=== PATIENT | male | born 1935 | race Caucasian/White ===

== ENCOUNTER 2017-05-15 21:16 | Inpatient (IN) | payer OTHER, BC ==
[~2017-05-15] VITALS: Ht 172.7 cm; Wt 67.0 kg
[~2017-05-15 21:16] MED LIST: BP MED; LEVOTHYROXINE100 MCG PO; QUINAPRIL HCL40 MG PO; TERAZOSIN HCL2 MG PO; WELLBUTRIN XL300 MG PO
[2017-05-15 22:37] LABS: CHLORIDE 97 mEq/L (99-109); POTASSIUM 4.3 mEq/L (3.7-5.4); SODIUM 127 mEq/L (136-147)
[2017-05-15 22:39] LABS: HEMATOCRIT 16.8 % (38.0-50.0); MCH 26.6 PG (29.0-34.0); MCHC 31.5 G/DL (30.0-36.0); MCV 84.4 FL (86-99); MEAN PLAT.VOLUME 8.5 uM^3 (9.0-12.4); PLATELET COUNT 367 K/uL (156-360); RBC DIS.WIDTH-CV 15.2 % (11.8-14.6); RBC DIS.WIDTH-SD 46.3 % (39-53); RED BLOOD COUNT 1.99 M/uL (4.00-5.50); WHITE BLOOD COUNT 5.4 K/uL (4.1-10.2)
[2017-05-15 22:39] LABS: GLUCOSE 81 mg/dL (70-99)
[2017-05-15 22:40] LABS: ANION GAP 7 MEQ/L (2-14)
[2017-05-15 22:43] LABS: GFR ESTIMATE (CALCULATED) > 59 mL/min/
[2017-05-15 22:44] LABS: UREA NITROGEN (BUN) 11 mg/dL (9-23)
[2017-05-15 23:07] LABS: INTER. NORMALIZED RATIO 1.1; PROTHROMBIN TIME 12.6 SEC (10.2-12.9)
[2017-05-15 23:10] LABS: PTT 28.8 SEC (25-37)
[2017-05-15 23:14] LABS: TOTAL BILIRUBIN 0.3 mg/dL (0.0-1.0)
[2017-05-15 23:15] LABS: ALKALINE PHOSPHATASE 91 IU/L (3-129)
[2017-05-15 23:18] LABS: DIRECT BILIRUBIN 0.2 mg/dL (0.0-0.3)
[2017-05-15 23:19] LABS: LIPASE 34 U/L (1.0-51.0)
[2017-05-15 23:23] LABS: TROP-I INTERPRETATION NEGATIVE; TROPONIN-I < 0.01 ng/mL (0.0-0.30)
[2017-05-16] VITALS (10 sets, daily range): BP systolic 148–195; BP diastolic 71–92
[2017-05-16] MEDS ORDERED: KENALOG,ARISTOC80 G1 TP (00:46)
[2017-05-16] MEDS ORDERED: FUROSEMIDE20 MG PO (00:46)
[2017-05-16] MEDS ORDERED: DIPROSONE 0.05%15 GM TP (00:46)
[2017-05-16] MEDS ORDERED: KLOR-CON M2020 MEQ PO (00:47)
[2017-05-16] MEDS ORDERED: SLOW RELEASE I142 M1 PO (00:47)
[2017-05-16] MEDS ORDERED: VITAMIN B-121000 MC3 PO (00:47)
[2017-05-16 05:40] LABS: TROP-I INTERPRETATION NEGATIVE; TROPONIN-I < 0.01 ng/mL (0.0-0.30)
[2017-05-16 10:47] LABS: HEMATOCRIT 27.2 % (38.0-50.0); MCH 27.8 PG (29.0-34.0); MCHC 33.1 G/DL (30.0-36.0); MEAN PLAT.VOLUME 8.3 uM^3 (9.0-12.4); PLATELET COUNT 396 K/uL (156-360); RBC DIS.WIDTH-CV 14.2 % (11.8-14.6); RBC DIS.WIDTH-SD 43.6 % (39-53); RED BLOOD COUNT 3.24 M/uL (4.00-5.50); WHITE BLOOD COUNT 6.1 K/uL (4.1-10.2)
[2017-05-16 10:52] LABS: TROP-I INTERPRETATION NEGATIVE; TROPONIN-I 0.01 ng/mL (0.0-0.30)
[2017-05-16 11:01] LABS: ANION GAP 5 MEQ/L (2-14); CHLORIDE 93 MEQ/L (99-109); GFR ESTIMATE (CALCULATED) > 59 mL/min/; GLUCOSE 84 mg/dL (70-99); POTASSIUM 4.2 MEQ/L (3.7-5.4); SAMPLE HEMOLYSIS CHECK 0; SAMPLE ICTERIC CHECK 0; SAMPLE LIPEMIA CHECK 0; SODIUM 127 MEQ/L (136-147); UREA NITROGEN (BUN) 10 mg/dL (9-23)
[2017-05-16 20:14] LABS: HEMATOCRIT 26.5 % (38.0-50.0); MCV 83.6 FL (86-99)
[2017-05-17] VITALS (8 sets, daily range): BP systolic 163–206; BP diastolic 72–89
[2017-05-17 06:56] LABS: ALKALINE PHOSPHATASE 77 IU/L (3-129); ANION GAP 8 MEQ/L (2-14); CHLORIDE 95 MEQ/L (99-109); GFR ESTIMATE (CALCULATED) > 59 mL/min/; GLUCOSE 61 mg/dL (70-99); POTASSIUM 3.8 MEQ/L (3.7-5.4); SAMPLE HEMOLYSIS CHECK 0; SAMPLE ICTERIC CHECK 0; SAMPLE LIPEMIA CHECK 0; SODIUM 132 MEQ/L (136-147); TOTAL BILIRUBIN 0.6 MG/DL (0.0-1.0); UREA NITROGEN (BUN) 9 mg/dL (9-23)
[2017-05-17 08:32] LABS: HEMATOCRIT 25.2 % (38.0-50.0); MCV 84.3 FL (86-99)
[2017-05-17 21:28] LABS: HEMATOCRIT 27.3 % (38.0-50.0); MCV 85.6 FL (86-99)
[2017-05-18 03:16] VITALS: BP 177/75
[2017-05-18 07:43] VITALS: BP 191/94
[2017-05-18 08:38] LABS: HEMATOCRIT 29.6 % (38.0-50.0)
[2017-05-18 11:37] VITALS: BP 180/85
[2017-05-18 15:31] VITALS: BP 179/90
[2017-05-18 19:59] VITALS: BP 175/80
[2017-05-18 20:01] LABS: MCV 85.8 FL (86-99)
[2017-05-18 23:23] VITALS: BP 189/92
[2017-05-19 03:15] VITALS: BP 185/86
[2017-05-19 07:02] LABS: MCH 28.1 PG (29.0-34.0); MCHC 32.5 G/DL (30.0-36.0); MCV 86.4 FL (86-99); MEAN PLAT.VOLUME 8.6 uM^3 (9.0-12.4); NRBC (%) 0.2 /100 WBC (0-0); PLATELET COUNT 352 K/uL (156-360); RBC DIS.WIDTH-SD 46.3 % (39-53); RED BLOOD COUNT 3.24 M/uL (4.00-5.50); WHITE BLOOD COUNT 8.8 K/uL (4.1-10.2)
[2017-05-19 07:33] LABS: ANION GAP 5 MEQ/L (2-14); CHLORIDE 95 MEQ/L (99-109); GFR ESTIMATE (CALCULATED) > 59 mL/min/; POTASSIUM 3.7 MEQ/L (3.7-5.4); SAMPLE HEMOLYSIS CHECK 0; SAMPLE ICTERIC CHECK 0; SAMPLE LIPEMIA CHECK 0; SODIUM 131 MEQ/L (136-147); UREA NITROGEN (BUN) 7 mg/dL (9-23)
[2017-05-19 07:41] LABS: GLUCOSE 80 mg/dL (70-99)
[2017-05-19 07:54] VITALS: BP 175/83
[2017-05-19 16:43] VITALS: BP 182/73
[2017-05-19 19:58] LABS: HEMATOCRIT 28.5 % (38.0-50.0); MCV 86.9 FL (86-99)
[2017-05-19 23:31] VITALS: BP 143/70
[2017-05-20 03:51] VITALS: BP 142/70
[2017-05-20 06:33] LABS: HEMATOCRIT 28.1 % (38.0-50.0); MCH 28.2 PG (29.0-34.0); MCHC 32.4 G/DL (30.0-36.0); MEAN PLAT.VOLUME 8.6 uM^3 (9.0-12.4); PLATELET COUNT 346 K/uL (156-360); RBC DIS.WIDTH-CV 15.7 % (11.8-14.6); RBC DIS.WIDTH-SD 47.2 % (39-53); RED BLOOD COUNT 3.23 M/uL (4.00-5.50); WHITE BLOOD COUNT 7.7 K/uL (4.1-10.2)
[2017-05-20 06:59] LABS: ANION GAP 6 MEQ/L (2-14); CHLORIDE 96 MEQ/L (99-109); GFR ESTIMATE (CALCULATED) > 59 mL/min/; GLUCOSE 82 mg/dL (70-99); POTASSIUM 3.5 MEQ/L (3.7-5.4); SAMPLE HEMOLYSIS CHECK 0; SAMPLE ICTERIC CHECK 0; SAMPLE LIPEMIA CHECK 0; SODIUM 133 MEQ/L (136-147); UREA NITROGEN (BUN) 8 mg/dL (9-23)
[2017-05-20 08:00] VITALS: BP 186/68
[2017-05-20 11:45] VITALS: BP 166/64
[2017-05-20 14:58] VITALS: BP 168/69
[2017-05-20 19:52] VITALS: BP 162/79
[2017-05-21] VITALS (7 sets, daily range): BP systolic 139–194; BP diastolic 64–100
[2017-05-21 06:32] LABS: HEMATOCRIT 28.9 % (38.0-50.0); MCH 28.4 PG (29.0-34.0); MCHC 32.2 G/DL (30.0-36.0); MCV 88.1 FL (86-99); MEAN PLAT.VOLUME 8.9 uM^3 (9.0-12.4); PLATELET COUNT 337 K/uL (156-360); RBC DIS.WIDTH-CV 16.4 % (11.8-14.6); RBC DIS.WIDTH-SD 49.1 % (39-53); RED BLOOD COUNT 3.28 M/uL (4.00-5.50); WHITE BLOOD COUNT 7.4 K/uL (4.1-10.2)
[2017-05-21 06:46] LABS: ANION GAP 7 MEQ/L (2-14); CHLORIDE 98 MEQ/L (99-109); GFR ESTIMATE (CALCULATED) > 59 mL/min/; GLUCOSE 80 mg/dL (70-99); POTASSIUM 3.6 MEQ/L (3.7-5.4); SAMPLE HEMOLYSIS CHECK 0; SAMPLE ICTERIC CHECK 0; SAMPLE LIPEMIA CHECK 0; SODIUM 136 MEQ/L (136-147); UREA NITROGEN (BUN) 12 mg/dL (9-23)
[2017-05-21 17:32] LABS: ADD MIUA? NO; BILIRUBIN NEGATIVE; BLOOD NEGATIVE; COLOR YELLOW ((YELLOW)); GLUCOSE (STRIP) NEGATIVE; KETONES NEGATIVE; LEUKOCYTES NEGATIVE; NITRITE NEGATIVE; PROTEIN (STRIP) NEGATIVE; SPECIFIC GRAVITY 1.013 (1.000-1.030)
[2017-05-22] VITALS (13 sets, daily range): BP systolic 0–192; BP diastolic 0–111
[2017-05-22 04:32] LABS: POINT-OF-CARE METER ID UU13113717
[2017-05-22 04:53] LABS: HEMATOCRIT 34.1 % (38.0-50.0); MCH 29.2 PG (29.0-34.0); MCHC 33.1 G/DL (30.0-36.0); MCV 88.1 FL (86-99); PLATELET COUNT 411 K/uL (156-360); RBC DIS.WIDTH-SD 50.3 % (39-53); RED BLOOD COUNT 3.87 M/uL (4.00-5.50); WHITE BLOOD COUNT 10.2 K/uL (4.1-10.2)
[2017-05-22 05:01] LABS: CHLORIDE 98 mEq/L (99-109); MAGNESIUM 1.5 mg/dL (1.3-2.7); POTASSIUM 3.8 mEq/L (3.7-5.4); SODIUM 138 mEq/L (136-147)
[2017-05-22 05:02] LABS: GLUCOSE 94 mg/dL (70-99)
[2017-05-22 05:07] LABS: GFR ESTIMATE (CALCULATED) > 59 mL/min/; UREA NITROGEN (BUN) 14 mg/dL (9-23)
[2017-05-22 05:12] LABS: ANION GAP 12 MEQ/L (2-14)
[2017-05-22 05:14] LABS: ALKALINE PHOSPHATASE 74 IU/L (3-129); TOTAL BILIRUBIN 0.6 mg/dL (0.0-1.0)
[2017-05-22 05:16] LABS: DIRECT BILIRUBIN 0.3 mg/dL (0.0-0.3)
[2017-05-22 06:14] LABS: METH RESISTANT S AUREUS PCR NEGATIVE (NEGATIVE); PROBE CHECK PASS; SPECIMEN PROCESSING CONTROL PASS
[2017-05-22 08:53] LABS: BASOPHIL COUNT 0.1 K/uL (0-0.1); EOSINOPHIL (%) 0.2 % (0-5); HEMATOCRIT 32.2 % (38.0-50.0); IMMATURE GRANULOCYTE (%) 0.5 % (0.0-0.7); INSTRUMENT ABS NEUTROPHIL CT 6.7 K/uL; LYMPHOCYTE COUNT 0.9 K/uL (1.0-2.8); MCH 28.9 PG (29.0-34.0); MCHC 32.3 G/DL (30.0-36.0); MCV 89.4 FL (86-99); MEAN PLAT.VOLUME 8.8 uM^3 (9.0-12.4); MONOCYTE (%) 9.8 % (3-12); MONOCYTE COUNT 0.8 K/uL (0-0.8); NEUTROPHIL (%) 78.3 % (45-76); NEUTROPHIL COUNT 6.7 K/uL (1.8-6.4); PLATELET COUNT 358 K/uL (156-360); RBC DIS.WIDTH-CV 17.1 % (11.8-14.6); RBC DIS.WIDTH-SD 52.3 % (39-53); WHITE BLOOD COUNT 8.5 K/uL (4.1-10.2)
[2017-05-23] VITALS (10 sets, daily range): BP systolic 114–177; BP diastolic 61–109
[2017-05-23 05:44] LABS: HEMATOCRIT 32.6 % (38.0-50.0); MCH 28.3 PG (29.0-34.0); MCHC 31.9 G/DL (30.0-36.0); MCV 88.8 FL (86-99); MEAN PLAT.VOLUME 8.6 uM^3 (9.0-12.4); PLATELET COUNT 387 K/uL (156-360); RBC DIS.WIDTH-CV 17.6 % (11.8-14.6); RBC DIS.WIDTH-SD 54.4 % (39-53); RED BLOOD COUNT 3.67 M/uL (4.00-5.50); WHITE BLOOD COUNT 8.1 K/uL (4.1-10.2)
[2017-05-23 06:17] LABS: ANION GAP 8 MEQ/L (2-14); CHLORIDE 98 MEQ/L (99-109); GFR ESTIMATE (CALCULATED) > 59 mL/min/; GLUCOSE 68 mg/dL (70-99); POTASSIUM 3.5 MEQ/L (3.7-5.4); SAMPLE HEMOLYSIS CHECK 0; SAMPLE ICTERIC CHECK 0; SAMPLE LIPEMIA CHECK 0; SODIUM 138 MEQ/L (136-147); UREA NITROGEN (BUN) 16 mg/dL (9-23)
[2017-05-23 14:37] LABS: URIC ACID 7.2 mg/dL (3.1-9.2)
[2017-05-24 04:33] VITALS: BP 151/67
[2017-05-24 08:00] VITALS: BP 164/68
[2017-05-24] MEDS ORDERED: MUPIROCIN15 GM TP (11:10)
[2017-05-24] MEDS ORDERED: KEFLEX500 MG PO (11:10)
[2017-05-24] MEDS ORDERED: COLCHICINE0.6 M1 PO (11:10)
[2017-05-24] MEDS ORDERED: TRAMADOL HCL50 MG PO (11:10)
[2017-05-24] MEDS ORDERED: APRESOLINE50 MG PO (11:58)
[2017-05-24 12:00] VITALS: BP 125/64
== END 2017-05-24 16:46 | disposition home health service (06) | DRG 378 ==
LOC: EME 21:16 → EDBD 21:16 → EME 21:16 → 4WEST 05-16 01:04 → 5SOUTH 05-16 01:04 → EDOF 05-16 01:04 → ENRESERV 05-16 01:06 → 5SOUTH 05-16 03:48 → ENRESERV 05-22 04:36 → 4WEST 05-22 04:41 → ENRESERV 05-23 13:31 → 5SOUTH 05-23 16:01
PROVIDERS: Hospitalist; Internal Medicine; Nurse Practitioner Adult Health
PROC: 30233N1 Transfusion of Nonautologous Red Blood Cells into Peripheral Vein, Percutaneous Approach (ICD-10-PCS; 2017-05-16)
PROC: 0DJ08ZZ Inspection of Upper Intestinal Tract, Via Natural or Artificial Opening Endoscopic (ICD-10-PCS; principal; 2017-05-19)
DX: K92.1 Melena (principal); D62 Acute posthemorrhagic anemia; D50.9 Iron deficiency anemia, unspecified; E06.3 Autoimmune thyroiditis; F10.231 Alcohol dependence with withdrawal delirium; I16.0 Hypertensive urgency; I10 Essential (primary) hypertension; E87.1 Hypo-osmolality and hyponatremia; M10.9 Gout, unspecified; I87.2 Venous insufficiency (chronic) (peripheral); H26.9 Unspecified cataract; M20.42 Other hammer toe(s) (acquired), left foot; N40.0 Benign prostatic hyperplasia without lower urinary tract symptoms; K40.90 Unilateral inguinal hernia, without obstruction or gangrene, not specified as recurrent; K42.9 Umbilical hernia without obstruction or gangrene; M54.9 Dorsalgia, unspecified; R14.0 Abdominal distension (gaseous); R19.7 Diarrhea, unspecified; R45.1 Restlessness and agitation; R60.0 Localized edema; F32.9 Major depressive disorder, single episode, unspecified; Z87.891 Personal history of nicotine dependence
CPT/HCPCS: 36415; 70450; 71010; 80048; 80048 91; 80053; 80069; 80076; 81003; 82140; 82272; 82728; 82948; 83540; 83605; 83690; 83735; 83880; 84439; 84443; 84450; 84460; 84466; 84484; 84550; 85014; 85018; 85025; 85027; 85610; 85730; 86850; 86900; 86901; 86920; 87040; 87086; 87641; 92523 GN; 92610 GN; 93005; 93306; 93970; 94799; 97530 GO; 99281; 99285; C9113; J0360; J0696; J1630; J1756; J1940; J2060; J3475; J7030; J7050; P9016; S0028

== ENCOUNTER 2017-06-23 11:12 | Inpatient (IN) | payer OTHER, BC ==
[~2017-06-23] VITALS: Ht 172.7 cm; Wt 80.1 kg
[~2017-06-23 11:12] MED LIST changes: +APRESOLINE50 MG PO; +COLCHICINE0.6 M1 PO; +DIPROSONE 0.05%15 GM TP; +FUROSEMIDE20 MG PO; +KEFLEX500 MG PO; +KENALOG,ARISTOC80 G1 TP; +KLOR-CON M2020 MEQ PO; +MUPIROCIN15 GM TP; +SLOW RELEASE I142 M1 PO; +TRAMADOL HCL50 MG PO; +VITAMIN B-121000 MC3 PO
[2017-06-23 13:14] LABS: MCH 29.3 PG (29.0-34.0); MCHC 32.9 G/DL (30.0-36.0); MCV 88.9 FL (86-99); MEAN PLAT.VOLUME 8.1 uM^3 (9.0-12.4); PLATELET COUNT 376 K/uL (156-360); RBC DIS.WIDTH-CV 19.5 % (11.8-14.6); RBC DIS.WIDTH-SD 63.2 % (39-53); WHITE BLOOD COUNT 15.8 K/uL (4.1-10.2)
[2017-06-23 13:22] LABS: CHLORIDE 98 mEq/L (99-109); POTASSIUM 3.8 mEq/L (3.7-5.4); SODIUM 133 mEq/L (136-147)
[2017-06-23 13:24] LABS: GLUCOSE 81 mg/dL (70-99)
[2017-06-23 13:24] LABS: INTER. NORMALIZED RATIO 1.3; PROTHROMBIN TIME 14.7 SEC (10.2-12.9); PTT 29.9 SEC (25-37)
[2017-06-23 13:25] LABS: ANION GAP 7 MEQ/L (2-14)
[2017-06-23 13:26] LABS: TOTAL BILIRUBIN 0.3 mg/dL (0.0-1.0)
[2017-06-23 13:28] LABS: ALKALINE PHOSPHATASE 75 IU/L (3-129); GFR ESTIMATE (CALCULATED) > 59 mL/min/ (58.99-99999)
[2017-06-23 13:29] LABS: UREA NITROGEN (BUN) 15 mg/dL (9-23)
[2017-06-23 13:34] LABS: TROP-I INTERPRETATION NEGATIVE; TROPONIN-I < 0.01 ng/mL (0.0-0.30)
[2017-06-23] MEDS ORDERED: VITAMIN B-12 51 EACH SL (15:08)
[2017-06-23] MEDS ORDERED: CENTRUM FLAVOR1 EAC1 PO (15:09)
[2017-06-23] MEDS ORDERED: ANTI-DIARRHEA2 MG PO (15:09)
[2017-06-23 15:56] VITALS: BP 173/77
[2017-06-23 22:38] VITALS: BP 159/72
[2017-06-23 22:54] LABS: HEMATOCRIT 21.9 % (38.0-50.0); MCV 89.8 FL (86-99)
[2017-06-24] VITALS (10 sets, daily range): BP systolic 146–189; BP diastolic 76–106
[2017-06-24 05:37] LABS: MCV 89.9 FL (86-99)
[2017-06-24 12:18] LABS: HEMATOCRIT 24.9 % (38.0-50.0); MCV 89.6 FL (86-99)
[2017-06-24 20:55] LABS: HEMATOCRIT 25.3 % (38.0-50.0); MCV 89.7 FL (86-99)
[2017-06-25 03:49] VITALS: BP 174/86
[2017-06-25 06:39] LABS: HEMATOCRIT 26.3 % (38.0-50.0); MCH 28.3 PG (29.0-34.0); MCHC 31.6 G/DL (30.0-36.0); MCV 89.8 FL (86-99); MEAN PLAT.VOLUME 8.3 uM^3 (9.0-12.4); PLATELET COUNT 376 K/uL (156-360); RBC DIS.WIDTH-CV 19.1 % (11.8-14.6); RBC DIS.WIDTH-SD 63.4 % (39-53); RED BLOOD COUNT 2.93 M/uL (4.00-5.50); WHITE BLOOD COUNT 6.3 K/uL (4.1-10.2)
[2017-06-25 06:57] LABS: ANION GAP 7 MEQ/L (2-14); CHLORIDE 101 MEQ/L (99-109); GFR ESTIMATE (CALCULATED) > 59 mL/min/ (58.99-99999); GLUCOSE 56 mg/dL (70-99); SAMPLE HEMOLYSIS CHECK 0; SAMPLE ICTERIC CHECK 0; SAMPLE LIPEMIA CHECK 0; SODIUM 137 MEQ/L (136-147); UREA NITROGEN (BUN) 8 mg/dL (9-23)
[2017-06-25 07:05] VITALS: BP 197/97
[2017-06-25 09:00] VITALS: BP 152/76
[2017-06-25 09:04] LABS: HEMATOCRIT 28.6 % (38.0-50.0); MCV 88.8 FL (86-99)
[2017-06-25 15:05] VITALS: BP 151/70
[2017-06-25] MEDS ORDERED: CHOLESTYRAMINE P4 GM PO (16:31)
[2017-06-25 19:07] VITALS: BP 186/87
[2017-06-26 00:22] VITALS: BP 158/67
[2017-06-26 03:43] VITALS: BP 186/91
[2017-06-26 07:12] LABS: ANION GAP 5 MEQ/L (2-14); CHLORIDE 101 MEQ/L (99-109); GFR ESTIMATE (CALCULATED) > 59 mL/min/ (58.99-99999); GLUCOSE 78 mg/dL (70-99); POTASSIUM 4.1 MEQ/L (3.7-5.4); SAMPLE HEMOLYSIS CHECK 0; SAMPLE ICTERIC CHECK 0; SAMPLE LIPEMIA CHECK 0; SODIUM 137 MEQ/L (136-147); UREA NITROGEN (BUN) 7 mg/dL (9-23)
[2017-06-26 07:38] VITALS: BP 191/74
[2017-06-26] MEDS ORDERED: APRESOLINE50 MG PO (10:39)
[2017-06-26] MEDS ORDERED: AMOX TR-K CLV1 EAC4 PO (10:42)
[2017-06-26 11:05] VITALS: BP 158/70
== END 2017-06-26 13:46 | disposition home health service (06) | DRG 394 ==
LOC: EME 11:12 → 5SOUTH 13:41 → EDOF 13:41 → ENRESERV 13:47 → 5SOUTH 14:16 → ENRESERV 14:17 → EDOF 14:20 → 5SOUTH 15:30
PROVIDERS: Emergency Medicine; Hospitalist; Nurse Practitioner Adult Health; Physician Assistant Medical
PROC: 0D9Q3ZZ Drainage of Anus, Percutaneous Approach (ICD-10-PCS; principal; 2017-06-23)
PROC: 30233N1 Transfusion of Nonautologous Red Blood Cells into Peripheral Vein, Percutaneous Approach (ICD-10-PCS; 2017-06-24)
DX: K61.2 Anorectal abscess (principal); K92.2 Gastrointestinal hemorrhage, unspecified; L03.317 Cellulitis of buttock; D50.0 Iron deficiency anemia secondary to blood loss (chronic); E88.09 Other disorders of plasma-protein metabolism, not elsewhere classified; K64.5 Perianal venous thrombosis; E06.3 Autoimmune thyroiditis; F41.9 Anxiety disorder, unspecified; I10 Essential (primary) hypertension; N40.0 Benign prostatic hyperplasia without lower urinary tract symptoms; R60.0 Localized edema; F10.20 Alcohol dependence, uncomplicated; Z87.891 Personal history of nicotine dependence
CPT/HCPCS: 74177; 76705; 80048; 80053; 83605; 84484; 85014; 85018; 85027; 85610; 85730; 86850; 86900; 86901; 86920; 87040; 87070; 87075; 87076; 87185; 87205; 93005; 99281; 99285; J0295; J0330; J0360; J1170; J1756; J2543; J2704; J3010; J3411; J7030; J7050; P9016; P9045; P9047; S0020

== ENCOUNTER 2017-07-25 15:21 | Emergency (ER) | payer OTHER, BC ==
[~2017-07-25] VITALS: Ht 165.1 cm; Wt 74.3 kg
[~2017-07-25 15:21] MED LIST changes: +AMOX TR-K CLV1 EAC4 PO; +ANTI-DIARRHEA2 MG PO; +CENTRUM FLAVOR1 EAC1 PO; +CHOLESTYRAMINE P4 GM PO; +VITAMIN B-12 51 EACH SL; +VITAMIN B-1250 MC3 PO
[2017-07-25 15:34] VITALS: BP 173/107
[2017-07-25 16:03] LABS: HEMATOCRIT 26.1 % (38.0-50.0); HEMOGLOBIN 8.5 G/DL (12.5-16.6); MCH 30.4 PG (29.0-34.0); MCHC 32.6 G/DL (30.0-36.0); MCV 93.2 FL (86-99); PLATELET COUNT 381 K/uL (156-360); RBC DIS.WIDTH-CV 19.4 % (11.8-14.6); RBC DIS.WIDTH-SD 66.2 % (39-53); WHITE BLOOD COUNT 10.2 K/uL (4.1-10.2)
[2017-07-25 16:12] LABS: CHLORIDE 102 mEq/L (99-109); POTASSIUM 4.5 mEq/L (3.7-5.4); SODIUM 134 mEq/L (136-147)
[2017-07-25 16:14] LABS: GLUCOSE 81 mg/dL (70-99)
[2017-07-25 16:18] LABS: CREATININE 0.8 mg/dL (0.6-1.3); GFR ESTIMATE (CALCULATED) > 59 mL/min/ (58.99-99999)
[2017-07-25 16:19] LABS: UREA NITROGEN (BUN) 20 mg/dL (9-23)
[2017-07-29] MEDS ORDERED: LASIX20 MG PO ×2 (14:47→14:48)
== END 2017-07-25 16:43 | disposition left against medical advice (07) ==
LOC: EME 15:21
PROVIDERS: Nurse Practitioner Family
DX: Z53.21 Procedure and treatment not carried out due to patient leaving prior to being seen by health care provider (principal)
CPT/HCPCS: 80048; 85027; 87040

== ENCOUNTER 2017-07-31 09:07 | Day surgery (SDC) | payer OTHER, BC ==
[~2017-07-31] VITALS: Ht 170.2 cm; Wt 72.5 kg
[~2017-07-31 09:07] MED LIST changes: +LASIX20 MG PO
[2017-07-31 09:43] VITALS: BP 166/75
[2017-07-31 09:51] LABS: HEMATOCRIT 26.3 % (38.0-50.0); HEMOGLOBIN 8.5 G/DL (12.5-16.6); MCV 94.6 FL (86-99)
[2017-07-31 20:11] VITALS: BP 193/83
[2017-07-31 22:42] VITALS: BP 182/83; BP 82/83
[2017-08-01 03:58] VITALS: BP 156/67
[2017-08-01 06:50] VITALS: BP 174/84
[2017-08-01 09:05] LABS: BASOPHIL (%) 0.6 % (0-1); BASOPHIL COUNT 0.1 K/uL (0-0.1); EOSINOPHIL (%) 0 % (0-5); HEMATOCRIT 26.2 % (38.0-50.0); HEMOGLOBIN 8.4 G/DL (12.5-16.6); IMMATURE GRANULOCYTE (%) 0.4 % (0.0-0.7); LYMPHOCYTE (%) 13.3 % (15-42); LYMPHOCYTE COUNT 1.3 K/uL (1.0-2.8); MCH 29.9 PG (29.0-34.0); MCHC 32.1 G/DL (30.0-36.0); MCV 93.2 FL (86-99); MONOCYTE (%) 7.1 % (3-12); MONOCYTE COUNT 0.7 K/uL (0-0.8); NEUTROPHIL (%) 78.6 % (45-76); NEUTROPHIL COUNT 7.9 K/uL (1.8-6.4); PLATELET COUNT 391 K/uL (156-360); RBC DIS.WIDTH-CV 18.5 % (11.8-14.6); RBC DIS.WIDTH-SD 64.9 % (39-53); RED BLOOD COUNT 2.81 M/uL (4.00-5.50); WHITE BLOOD COUNT 10.1 K/uL (4.1-10.2)
[2017-08-01 09:46] LABS: ALBUMIN 2.4 G/DL (3.2-4.8); ALKALINE PHOSPHATASE 57 IU/L (3-129); ALT (GPT) 9 IU/L (3-49); AST (GOT) 14 IU/L (2-34); CHLORIDE 102 MEQ/L (99-109); CREATININE 0.7 MG/DL (0.6-1.3); GFR ESTIMATE (CALCULATED) > 59 mL/min/ (58.99-99999); GLUCOSE 102 mg/dL (70-99); MAGNESIUM 2.1 mg/dl (1.3-2.7); PHOSPHORUS 3.4 mg/dL (2.5-4.9); POTASSIUM 4.1 MEQ/L (3.7-5.4); SODIUM 134 MEQ/L (136-147); TOTAL BILIRUBIN 0.5 MG/DL (0.0-1.0); TOTAL PROTEIN 5.7 G/DL (6.4-8.3); UREA NITROGEN (BUN) 10 mg/dL (9-23)
[2017-08-01 11:22] VITALS: BP 165/85
[2017-08-01] MEDS ORDERED: AMOX TR-K CLV1 EAC4 PO (12:38)
[2017-08-01 15:25] VITALS: BP 151/73
== END 2017-08-01 19:38 | disposition home or self-care (01) ==
LOC: SDC 09:07 → AMB 10:00 → EDSTATUS 11:45 → SDC 11:45 → ENRESERV 17:19 → 5EAST 17:20 → 2SOUTH 17:20 → ENRESERV 17:28 → 5EAST 19:56
PROVIDERS: Surgery
PROC: 0DBP8ZX Excision of Rectum, Via Natural or Artificial Opening Endoscopic, Diagnostic (ICD-10-PCS; principal; 2017-07-31)
PROC: 0D9P0ZX Drainage of Rectum, Open Approach, Diagnostic (ICD-10-PCS; principal; 2017-07-31)
DX: K61.2 Anorectal abscess (principal); K62.89 Other specified diseases of anus and rectum; I10 Essential (primary) hypertension; R19.7 Diarrhea, unspecified; D50.0 Iron deficiency anemia secondary to blood loss (chronic); E03.9 Hypothyroidism, unspecified; I44.0 Atrioventricular block, first degree
CPT/HCPCS: 80053; 83735; 84100; 85014; 85018; 85025; 87070; 87075; 87076; 87185; 87205; 88305; G0378; G8978 GP CJ; G8979 GP CH; G8980 CJ; G8987 GO CJ; G8988 GO CH; G8989 CJ; J0295; J1170; J1650; J2543; J3010; J7050; J7120; S0020

== ENCOUNTER 2017-08-19 05:26 | Day surgery (SDC) | payer OTHER, BC ==
[~2017-08-19] VITALS: Ht 170.2 cm; Wt 72.5 kg
[2017-08-19 06:12] LABS: HEMOGLOBIN 8.4 G/DL (12.5-16.6); MCH 31.7 PG (29.0-34.0); MCHC 32.3 G/DL (30.0-36.0); PLATELET COUNT 342 K/uL (156-360); RBC DIS.WIDTH-CV 16.4 % (11.8-14.6); RED BLOOD COUNT 2.65 M/uL (4.00-5.50); WHITE BLOOD COUNT 9.3 K/uL (4.1-10.2)
[2017-08-19 06:15] VITALS: BP 175/82
[2017-08-19 06:15] LABS: MCV 98.1 FL (86-99)
[2017-08-19] MEDS ORDERED: PERCOCET 5/31 TABLET PO (08:37)
[2017-08-19 10:04] VITALS: BP 133/74
[2017-08-19 11:08] VITALS: BP 164/78
== END 2017-08-19 11:30 | disposition home or self-care (01) ==
LOC: SDC 05:26
PROVIDERS: Surgery
PROC: 0D9P7ZZ Drainage of Rectum, Via Natural or Artificial Opening (ICD-10-PCS; principal; 2017-08-19)
DX: K61.2 Anorectal abscess (principal); I10 Essential (primary) hypertension; E06.3 Autoimmune thyroiditis; Z86.73 Personal history of transient ischemic attack (TIA), and cerebral infarction without residual deficits; G60.9 Hereditary and idiopathic neuropathy, unspecified; D50.0 Iron deficiency anemia secondary to blood loss (chronic); E53.8 Deficiency of other specified B group vitamins; I87.2 Venous insufficiency (chronic) (peripheral)
CPT/HCPCS: 85027; J3010; S0020; S0074

== ENCOUNTER → 2017-09-10 | Outpatient (CLI) | payer OTHER, BC ==
[~2017-09-10] VITALS: Ht 170.2 cm; Wt 72.6 kg
[~2017-09-10] MED LIST changes: +PERCOCET 5/31 TABLET PO; +TYLENOL WITH C1 EACH PO
[2017-09-10 09:12] LABS: HEMATOCRIT 27.6 % (38.0-50.0); HEMOGLOBIN 9.1 G/DL (12.5-16.6); MCV 97.5 FL (86-99)
== END | disposition home or self-care (01) ==
LOC: AMB 08:00
PROVIDERS: Internal Medicine Gastroenterology
PROC: 0DBE8ZX Excision of Large Intestine, Via Natural or Artificial Opening Endoscopic, Diagnostic (ICD-10-PCS; principal; 2017-09-10)
DX: D37.4 Neoplasm of uncertain behavior of colon (principal); K57.90 Diverticulosis of intestine, part unspecified, without perforation or abscess without bleeding; I10 Essential (primary) hypertension; E03.9 Hypothyroidism, unspecified; D64.9 Anemia, unspecified; Z87.891 Personal history of nicotine dependence
CPT/HCPCS: 85014; 85018; 88305; 93005

== ENCOUNTER 2017-09-11 21:26 | Emergency (ER) | payer OTHER, BC ==
[~2017-09-11] VITALS: Ht 175.3 cm; Wt 72.6 kg
[~2017-09-11 21:26] MED LIST changes: -TYLENOL WITH C1 EACH PO
[2017-09-11 22:31] LABS: BASOPHIL (%) 0.4 % (0-1); EOSINOPHIL (%) 0.3 % (0-5); HEMATOCRIT 24.8 % (38.0-50.0); HEMOGLOBIN 8.2 G/DL (12.5-16.6); IMMATURE GRANULOCYTE (%) 0.3 % (0.0-0.7); LYMPHOCYTE (%) 22.2 % (15-42); LYMPHOCYTE COUNT 1.6 K/uL (1.0-2.8); MCHC 33.1 G/DL (30.0-36.0); MCV 96.9 FL (86-99); MONOCYTE (%) 12.3 % (3-12); MONOCYTE COUNT 0.9 K/uL (0-0.8); NEUTROPHIL (%) 64.5 % (45-76); NEUTROPHIL COUNT 4.8 K/uL (1.8-6.4); PLATELET COUNT 289 K/uL (156-360); RBC DIS.WIDTH-CV 14.2 % (11.8-14.6); RBC DIS.WIDTH-SD 50.6 % (39-53); RED BLOOD COUNT 2.56 M/uL (4.00-5.50); WHITE BLOOD COUNT 7.4 K/uL (4.1-10.2)
[2017-09-11 22:39] LABS: ALBUMIN 2.8 g/dL (3.2-4.8); CHLORIDE 104 mEq/L (99-109); POTASSIUM 3.5 mEq/L (3.7-5.4)
[2017-09-11 22:40] LABS: SODIUM 140 mEq/L (136-147)
[2017-09-11 22:42] LABS: GLUCOSE 89 mg/dL (70-99); TOTAL PROTEIN 6.5 g/dL (6.4-8.3)
[2017-09-11 22:44] LABS: TOTAL BILIRUBIN 0.3 mg/dL (0.0-1.0)
[2017-09-11 22:45] LABS: ALKALINE PHOSPHATASE 82 IU/L (3-129)
[2017-09-11 22:46] LABS: CREATININE 0.8 mg/dL (0.6-1.3); GFR ESTIMATE (CALCULATED) > 59 mL/min/ (58.99-99999)
[2017-09-11 22:47] LABS: AST (GOT) 17 IU/L (2-34); DIRECT BILIRUBIN 0.2 mg/dL (0.0-0.3); UREA NITROGEN (BUN) 11 mg/dL (9-23)
[2017-09-11 22:48] LABS: ALT (GPT) 8 IU/L (3-49)
[2017-09-11 22:49] LABS: LIPASE 6 U/L (1.0-51.0)
[2017-09-12 00:56] LABS: APPEARANCE SL.HAZY ((CLEAR)); BILIRUBIN NEGATIVE; BLOOD NEGATIVE; COLOR STRAW ((YELLOW)); GLUCOSE (STRIP) NEGATIVE; KETONES NEGATIVE; LEUKOCYTES NEGATIVE; NITRITE NEGATIVE; PROTEIN (STRIP) NEGATIVE; SPECIFIC GRAVITY 1.017 (1.000-1.030); UROBILINOGEN 0.2 MG/DL (0.2-1.0)
[2017-09-12 01:01] LABS: BACTERIA NONE SEEN /HPF; EPITHELIAL CELLS RARE /HPF; MUCUS TRACE /LPF; RED BLOOD CELLS 0-5 /HPF (0-5); UCUL ADDED? NO; WHITE BLOOD CELLS 0-5 /HPF (0-5)
[2017-09-12] MEDS ORDERED: TYLENOL WITH C1 EACH PO (01:55)
[2017-09-12 02:20] VITALS: BP 172/117
== END 2017-09-12 03:07 | disposition home or self-care (01) ==
LOC: EME → EDBD 21:26 → EME 21:26
PROVIDERS: Emergency Medicine
DX: K61.1 Rectal abscess (principal); K40.90 Unilateral inguinal hernia, without obstruction or gangrene, not specified as recurrent; K42.9 Umbilical hernia without obstruction or gangrene; E06.3 Autoimmune thyroiditis; M10.9 Gout, unspecified; N40.0 Benign prostatic hyperplasia without lower urinary tract symptoms; F41.9 Anxiety disorder, unspecified; F32.9 Major depressive disorder, single episode, unspecified; Z87.891 Personal history of nicotine dependence; Z98.890 Other specified postprocedural states; Z87.19 Personal history of other diseases of the digestive system; Z88.8 Allergy status to other drugs, medicaments and biological substances
CPT/HCPCS: 74177; 80048; 80076; 81003; 83690; 85025; 99281; 99285; J3010

== ENCOUNTER 2017-11-10 22:10 | Inpatient (IN) | payer OTHER, BC ==
[~2017-11-10] VITALS: Ht 172.7 cm; Wt 75.6 kg
[~2017-11-10 22:10] MED LIST changes: +FEOSOL325 MG PO; +LASIX40 MG PO; +TYLENOL WITH C1 EACH PO
[2017-11-11 06:30] VITALS: BP 130/60
[2017-11-11 06:37] LABS: APPEARANCE SL.HAZY ((CLEAR)); BILIRUBIN NEGATIVE; BLOOD NEGATIVE; COLOR YELLOW ((YELLOW)); GLUCOSE (STRIP) NEGATIVE; KETONES NEGATIVE; LEUKOCYTES TRACE; NITRITE NEGATIVE; PROTEIN (STRIP) NEGATIVE; SPECIFIC GRAVITY 1.015 (1.000-1.030)
[2017-11-11 06:42] LABS: HEMATOCRIT 26.1 % (38.0-50.0); HEMOGLOBIN 8.6 G/DL (12.5-16.6); MCV 87.6 FL (86-99)
[2017-11-11 07:22] LABS: BACTERIA RARE /HPF; EPITHELIAL CELLS RARE /HPF; MUCUS RARE /LPF; RED BLOOD CELLS 0-5 /HPF (0-5); UCUL ADDED? NO; WHITE BLOOD CELLS 0-5 /HPF (0-5)
[2017-11-11 12:04] VITALS: BP 143/70
[2017-11-11 16:02] VITALS: BP 140/76
[2017-11-11 19:39] VITALS: BP 172/77
[2017-11-12] VITALS (8 sets, daily range): BP systolic 150–205; BP diastolic 62–86
[2017-11-12 12:06] LABS: HEMATOCRIT 35.5 % (38.0-50.0); MCH 28.1 PG (29.0-34.0); MCHC 31.8 G/DL (30.0-36.0); MCV 88.3 FL (86-99); PLATELET COUNT 440 K/uL (156-360); RBC DIS.WIDTH-CV 15.6 % (11.8-14.6); RBC DIS.WIDTH-SD 50.3 % (39-53); WHITE BLOOD COUNT 11.9 K/uL (4.1-10.2)
[2017-11-12 12:12] LABS: HEMOGLOBIN 11.3 G/DL (12.5-16.6); RED BLOOD COUNT 4.02 M/uL (4.00-5.50)
[2017-11-12 12:33] LABS: ALBUMIN 2.3 G/DL (3.2-4.8); ALKALINE PHOSPHATASE 69 IU/L (3-129); ALT (GPT) 7 IU/L (3-49); AST (GOT) 10 IU/L (2-34); CHLORIDE 98 MEQ/L (99-109); CREATININE 0.9 MG/DL (0.6-1.3); GFR ESTIMATE (CALCULATED) > 59 mL/min/ (58.99-99999); GLUCOSE 67 mg/dL (70-99); POTASSIUM 4.3 MEQ/L (3.7-5.4); SODIUM 134 MEQ/L (136-147); TOTAL BILIRUBIN 0.3 MG/DL (0.0-1.0); TOTAL PROTEIN 5.9 G/DL (6.4-8.3); UREA NITROGEN (BUN) 14 mg/dL (9-23)
[2017-11-13 00:55] VITALS: BP 161/78
[2017-11-13 04:29] VITALS: BP 164/71
[2017-11-13 07:52] VITALS: BP 179/74
[2017-11-13 12:04] VITALS: BP 162/78
[2017-11-13 16:10] VITALS: BP 175/80
[2017-11-13 19:42] VITALS: BP 166/77
[2017-11-14] VITALS (7 sets, daily range): BP systolic 140–179; BP diastolic 72–83
[2017-11-14 07:12] LABS: HEMATOCRIT 30.9 % (38.0-50.0); HEMOGLOBIN 10.2 G/DL (12.5-16.6); MCH 28.6 PG (29.0-34.0); MCV 86.6 FL (86-99); PLATELET COUNT 429 K/uL (156-360); RBC DIS.WIDTH-CV 15.8 % (11.8-14.6); RBC DIS.WIDTH-SD 49.7 % (39-53); RED BLOOD COUNT 3.57 M/uL (4.00-5.50); WHITE BLOOD COUNT 8.9 K/uL (4.1-10.2)
[2017-11-14 07:40] LABS: CHLORIDE 97 MEQ/L (99-109); CREATININE 0.7 MG/DL (0.6-1.3); GFR ESTIMATE (CALCULATED) > 59 mL/min/ (58.99-99999); GLUCOSE 66 mg/dL (70-99); POTASSIUM 3.7 MEQ/L (3.7-5.4); SODIUM 135 MEQ/L (136-147); UREA NITROGEN (BUN) 9 mg/dL (9-23)
[2017-11-15 03:28] VITALS: BP 160/85
[2017-11-15 07:25] VITALS: BP 176/81
[2017-11-15] MEDS ORDERED: TRAMADOL HCL50 MG PO (09:33)
[2017-11-15 11:42] VITALS: BP 184/85
== END 2017-11-15 16:04 | disposition home health service (06) | DRG 329 ==
LOC: CANRESERV 22:10 → ENRESERV 22:10 → 2SOUTH 11-11 05:41 → 2EAST 11-11 05:41 → ENRESERV 11-11 09:13 → 2SOUTH 11-11 11:17 → 2EAST 11-11 11:41 → 2SOUTH 11-11 15:52 → 2EAST 11-15 16:04
PROVIDERS: Physician Assistant Surgical; Surgery
PROC: 30233N1 Transfusion of Nonautologous Red Blood Cells into Peripheral Vein, Percutaneous Approach (ICD-10-PCS; principal; 2017-11-11)
PROC: 0WQF4ZZ Repair Abdominal Wall, Percutaneous Endoscopic Approach (ICD-10-PCS; principal; 2017-11-11)
PROC: 0D1N4Z4 Bypass Sigmoid Colon to Cutaneous, Percutaneous Endoscopic Approach (ICD-10-PCS; principal; 2017-11-11)
PROC: 0DBN4ZX Excision of Sigmoid Colon, Percutaneous Endoscopic Approach, Diagnostic (ICD-10-PCS; principal; 2017-11-11)
DX: C20 Malignant neoplasm of rectum (principal); K61.1 Rectal abscess; K63.1 Perforation of intestine (nontraumatic); K42.9 Umbilical hernia without obstruction or gangrene; I10 Essential (primary) hypertension; E03.9 Hypothyroidism, unspecified; N40.0 Benign prostatic hyperplasia without lower urinary tract symptoms; Z87.891 Personal history of nicotine dependence
CPT/HCPCS: 36430; 80048; 80053; 81003; 85014; 85018; 85027; 86850; 86900; 86901; 86920; 86999; 88302; 88304; 96374; J0360; J1100; J1650; J1940; J2001; J2795; J3475; J7120; P9016; S0020; S0074